=== PATIENT | female | born 1995 | race African-American/Black ===

== ENCOUNTER 2019-10-07 16:14 | Emergency (ER) | payer OTHER ==
[~2019-10-07] VITALS: Ht 152.4 cm; Wt 72.0 kg
[2019-10-07 16:32] VITALS: BP 126/72
[2019-10-07] MEDS ORDERED: HYDROcodone/APAP 5/325MG 1 TAB TABLET PO ONE (16:45)
[2019-10-07] MEDS ORDERED: ORPHENADRINE CITRATE 60 MG/2 ML VIAL. IM ONE (16:45)
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
[2019-10-07] MEDS ORDERED: ORPH100T PO (18:11)
[2019-10-07] MEDS ORDERED: HYDR-3164 PO (18:11)
== END 2019-10-07 18:25 | disposition home or self-care (01) ==
LOC: ER 16:14
DX: S16.1XXA Strain of muscle, fascia and tendon at neck level, initial encounter (principal); M25.511 Pain in right shoulder; M25.512 Pain in left shoulder; G43.909 Migraine, unspecified, not intractable, without status migrainosus; J30.2 Other seasonal allergic rhinitis; Z90.89 Acquired absence of other organs; Z98.890 Other specified postprocedural states; V49.88XA Car occupant (driver) (passenger) injured in other specified transport accidents, initial encounter; Y93.89 Activity, other specified; Y92.488 Other paved roadways as the place of occurrence of the external cause; Y99.8 Other external cause status
CPT/HCPCS: 72125; 81025; 96372; 99284; J2360